=== PATIENT | female | born 1985 | race Caucasian/White ===

== ENCOUNTER 2017-03-09 09:07 | Inpatient (IN) ==
--- NOTE | 2017-03-09 09:21 | Emergency Department Note ---
Disposition Clinical Impression: Cellulitis Qualifiers: Site of cellulitis: neck Qualified Code(s): L03.221 - Cellulitis of neck Disposition: Admitted As Inpatient Condition: Fair Referrals: NONE,PCP [Primary Care Provider] - Forms: ED Satisfaction Letter Time of Disposition: 12:21 Dental HPI - General Chief complaint: ED Dental/Oral Stated complaint: Dental Pain Time Seen by Provider: 03/09/17 09:14 Source: patient Mode of arrival: ambulatory Limitations: no limitations Nursing Notes Reviewed: Yes Vital Signs Reviewed: Yes - History of Present Illness HPI Narrative: 32-year-old female who comes in complaining of swelling to the left side of her face. Patient seen here twice on Wednesday given antibiotics however she has not been able to get the antibiotics due to her situation. She noticed increasing swelling. She is able swallow and handle secretions and speak without difficulty. Pt Subjective Complaint: dental pain Onset (ago): day(s) Duration: constant (5) Pain Severity: moderate Improves with: nothing Worsens with: other (Time) Context: other (History of a filling placed while she was in senior care and her tooth broke around it.) Treatment prior to arrival: none - Related Data Previous Rx's Medication Instructions Recorded Amoxicillin/Clavulanate [Augmentin] 875 mg PO BIDWM #14 tablet 03/06/17 Naproxen [Naprosyn] 500 mg PO BID PRN #20 tablet 03/06/17 Allergies Allergy/AdvReac Type Severity Reaction Status Date / Time No Known Allergies Allergy Verified 03/06/17 11:37 Constitutional: Denies: fever, chills, weakness, weight change Eyes: Denies: eye pain, eye discharge, vision change ENT ED: Reports: dental pain, other (Facial swelling). Denies: ear pain, throat pain, hearing loss, epistaxis, congestion, dysphagia Cardiovascular: Denies: chest pain, palpitations, dyspnea on exertion, edema, syncope Respiratory: Denies: cough, dyspnea, wheezes, hemoptysis, stridor Gastrointestinal: Denies: abdominal pain, nausea, vomiting, diarrhea, constipation, hematemesis, melena, hematochezia Genitourinary: Denies: dysuria, frequency, hematuria, discharge Musculoskeletal: Denies: back pain, neck pain, arthralgia, myalgia Integumentary: Denies: rash, abrasion, lesions Neurological: Denies: headache, weakness, numbness, paresthesias, confusion, abnormal gait, vertigo Psychiatric: Denies: anxiety, depression, suicidal thoughts, homicidal thoughts , auditory hallucinations, visual hallucinations Endocrine: Denies: fatigue Hematological/Lymphatic: Denies: easy bleeding, easy bruising Allergic/Immunologic: Denies: facial swelling, urticaria Past Medical History - Past Medical History Medical history: Reports: no medical history Surgical history: Reports: non-contributory Psychiatric history: Reports: no psych history - Social History Smoking Status: Current every day smoker Smokeless Tobacco Status: No Alcohol use: Reports: none Drug use: Reports: none Physical Exam - General Limitations: no limitations General appearance: alert, in no apparent distress - Head Head exam: atraumatic, normocephalic, normal inspection - Eye Eye exam: Present: normal appearance, PERRL, EOMI - ENT ENT exam: other (Swelling left side of her face no fluctuance. There is some redness going down anterior neck.) - Expanded ENT Exam Teeth exam: Present: other (There is no significant swelling of the soft palate no displacement of the tonsils. No swelling of the tongue or elevation of the tongue.) Throat exam: Absent: R peritonsillar mass, L peritonsillar mass, muffled voice - Neck Neck exam: Present: normal inspection - Chest Chest inspection: Present: normal inspection, symmetric chest wall rise - Respiratory Respiratory exam: Present: normal lung sounds bilaterally - Cardiovascular Cardiovascular exam: Present: regular rate, normal rhythm, normal heart sounds - Abdominal Exam Abdominal exam: Present: soft, Non-Tender. Absent: tenderness, distention, guarding, rebound, rigidity - Extremities Exam Extremities exam: Present: normal inspection, full ROM. Absent: tenderness, pedal edema - Expanded Lower Extremity Exam Neurovascular/Tendon exam: Absent: motor deficit, sensory deficit, tendon deficit Gait: observed and normal - Back Exam Back exam: Present: normal inspection, full ROM. Absent: tenderness - Neurological Exam Neurological exam: Present: alert, oriented X3 - Psychiatric Psychiatric exam: Present: normal affect, normal mood - Skin Skin exam: Present: warm, dry, intact, normal color Course - Reevaluation(s) Reevaluation #1: 32-year-old with the dental etiology swelling of the face who the symptoms got worse with increased swelling. CT scan shows significant cellulitis or an admit for IV antibiotics. Time: 12:37 - Consultations Consultation #1: Discussed with Dr. Thorpe, recommends oral surgery consult for the dental issue but is available if airway issues develop. Time: 12:25 Consultation #2: Discussed with , who recommends IV antibiotic treatment and then when the swelling is down and the patient's discharged for him to be contacted so that he can do the definitive procedure in his office. Time: 12:33 Consultation #3: Discussed with Dr. Lindsey, admit. Time: 12:37 Vital Signs Temperature 98.1 F 03/09/17 09:11 Pulse Rate 84 03/09/17 09:11 Respiratory Rate 20 03/09/17 09:11 Blood Pressure 100/67 03/09/17 09:11 O2 Sat by Pulse Oximetry 99 03/09/17 09:11 Temperature 98.1 F 03/09/17 09:11 Pulse Rate 84 03/09/17 09:11 Respiratory Rate 20 03/09/17 09:11 Blood Pressure 100/67 03/09/17 09:11 O2 Sat by Pulse Oximetry 99 03/09/17 09:11 Oxygen Delivery Oxygen Delivery Room Air Dental/Oral - Lab Data Lab results reviewed: Yes I reviewed the patient's lab results. Result diagrams: 03/09/17 09:58 03/09/17 09:58 Lab Results 03/09/17 03/09/17 03/09/17 Range/Units 09:58 09:58 09:58 WBC 11.7 H (4.3-11.1) K/mcL RBC 4.17 (3.82-4.97) M/mcL Hgb 12.8 (11.5-15.4) g/dL Hct 37.9 (35.3-44.9) % MCV 90.9 (83.0-100.0) fL MCH 30.7 (28.0-33.3) pg MCHC 33.8 (31.6-35.5) g/dL RDW 12.9 (11.5-14.5) % Plt Count 212 (140-400) K/mcL MPV 12.1 (9.4-12.4) fL Immature Gran % 1.1 (0-4) % Seg Neutrophils % 76.4 % Lymphocytes % 13.4 % Monocytes % 6.8 % Eosinophils % 1.7 % Basophils % 0.6 % Neutrophils # 9.0 H (1.6-8.9) K/mcL Lymphocytes # 1.6 (0.6-4.6) K/mcL Monocytes # 0.8 (0.0-1.3) K/mcL Eosinophils # 0.2 (0.0-0.6) K/mcL Basophils # 0.1 (0.0-0.2) K/mcL Sodium 140 (136-145) mEq/L Potassium 3.6 (3.5-4.5) mEq/L Chloride 108 (98-109) mEq/L Carbon Dioxide 21 (19-29) mEq/L BUN 7 (7-20) mg/dL Creatinine 0.70 (0.57-1.11) mg/dL Est GFR ( Amer) > 60 (> 60) Est GFR (Non-Af Amer) > 60 (> 60) BUN/Creatinine Ratio 10 (6-26) Glucose 85 (70-99) mg/dL Calculated Osmolality 287 (280-300) Calcium 8.8 (8.6-10.8) mg/dL Serum , Qual Negative (Negative) - Radiology Data Radiology results reviewed: Yes I reviewed the patient's radiology results. Soft Tissue Neck CT 03/09/17 09:18 IMPRESSION: Left premandibular soft tissue swelling likely related to cellulitis with phlegmon changes without drainable fluid collection or well-formed abscess, likely of dental sources, grossly stable. Extension of inflammatory changes into the left masseter muscle and left platysmas muscle. Cervical lymphadenopathy particularly at the left level IB and IIA, likely reactive. D/ / Logan Santiago MD / Logan Santiago MD Interpreting Provider: Logan Santiago MD
[2017-03-09 10:14] LABS: Basophils # 0.1 K/mcL (0.0-0.2); Basophils % 0.6 %; Eosinophils # 0.2 K/mcL (0.0-0.6); Eosinophils % 1.7 %; Hematocrit 37.9 % (35.3-44.9); Hemoglobin 12.8 g/dL (11.5-15.4); Immature Granulocytes % 1.1 % (0-4); Lymphocytes # 1.6 K/mcL (0.6-4.6); Lymphocytes % 13.4 %; Mean Corpuscular HGB Conc 33.8 g/dL (31.6-35.5); Mean Corpuscular Hemoglobin 30.7 pg (28.0-33.3); Mean Corpuscular Volume 90.9 fL (83.0-100.0); Mean Platelet Volume 12.1 fL (9.4-12.4); Monocytes # 0.8 K/mcL (0.0-1.3); Monocytes % 6.8 %; Platelet Count 212 K/mcL (140-400); Red Blood Count 4.17 M/mcL (3.82-4.97); Red Cell Distribution Width 12.9 % (11.5-14.5); Segmented Neutrophils % 76.4 %
[2017-03-09 10:26] LABS: BUN/Creatinine Ratio 10 (6-26); Blood Urea Nitrogen 7 mg/dL (7-20); Calcium 8.8 mg/dL (8.6-10.8); Carbon Dioxide 21 mEq/L (19-29); Chloride 108 mEq/L (98-109); Glucose 85 mg/dL (70-99); Osmolality,Calculated 287 (280-300); Potassium 3.6 mEq/L (3.5-4.5); Sodium 140 mEq/L (136-145); eGFR For African Americans > 60 (> 60); eGFR For Non-African Americans > 60 (> 60)
[2017-03-09] MEDS ORDERED: Piperacillin/Tazobactam 3.375 GM in D5% in Water (Mini-Bag+) 100 ML IVPB ONE (12:21)
[2017-03-09] MEDS ORDERED: Ibuprofen 600 MG TABLET PO ONE (18:43)
--- NOTE | 2017-03-09 20:04 | Internal Med History&Physical ---
<Zackary Agee - Last Filed: 03/09/17 21:00> Date of Encounter: 03/09/17 Time of Encounter: 20:04 Assessment and Plan (1) Cellulitis Current visit: Yes Status: Acute - As demonstrated on CT in ED today and at previous ED visit wednesday - Cellulitits involving soft tissue without obvious drainable abscess. Involvement of left masseter and platysmus muscle - ENT and dental surgery consulted in ED, recommend IV abx and follow up outpatient for dental surgery - No reported fevers, orbital involvement, airway compromise, cardiac signs or symptoms. Mild WBC elevation at 11.7 - Will continue IV Abx with unasyn 3g q6hr and pain control. Qualifiers: Site of cellulitis: mouth Qualified Code(s): K12.2 - Cellulitis and abscess of mouth (2) DVT prophylaxis Current visit: Yes Status: Acute - heparin 5000 units q12 hr Internal Medicine - H&P: HPI Chief complaint: Tooth pain Admitted From: Emergency Dept Plans for Post Hospital Care: Home History of present illness: Ms. Ron is a 32 year old female who presents to ED with a complaint of left lower tooth pain. She reports that she lost a filling approximately 6-8 months ago around tooth 19. She reports start of swelling last , and pain onset on tuesday 03/06. She presented to the ED twice on wednesday and CT scan showed soft tissue swelling. She was discharged home with augmentin but states she was unable to fill her perscription due to living in a correction house. She states the swelling and pain have gotten worse since then. She denies any symptoms of fevers, CP, trouble breathing, nausea, vomiting, weakness but she does admit to difficulty eating due to pain as well as some chills last wednesday. She has been afebrile since during hospital stay but was noted to be tachycardic in ED wednesday. She has been taking ibuprofen at home with minimal relief. In ED, VS wnl. Labs significant for mild white count at 11.7. Remainder of labs unremarkable. CT head again showed soft tissue swelling without definite abscess. She was started on zosyn. ENT consulted in ED who recommended dental surgery consult. Dental surgery recommended IV ABx and follow up as outpatient for dental procedure. Past Med Surg Social Fam HX - Past Medical History Medical history: no medical history Psychiatric history: no psych history - Past Surgical History Surgical History: non-contributory, - Social History Smoking Status: Current every day smoker Smokeless Tobacco Status: No Alcohol use: none Drug use: none (former heroin use, clean 3 years) Current living situation: Other (correction house) Internal Medicine - H&P: Meds No Known Home Drugs 03/09/17 [History] 3 Allergy/AdvReac Type Severity Reaction Status Date / Time No Known Allergies Allergy Verified 03/06/17 11:37 All Systems PM: A 10-system review of systems was performed and is negative for pertinent findings except as documented above in the HPI. - Constitutional Constitutional: chills, no excessive sweating, no fatigue, no fever(s) - EENT Eyes: no change in vision Ears: ear pain (pressure in left ear secondary to swelling) Nose, mouth and throat: dental pain, facial pain, no odynophagia, no sinus pain , no sore throat, no throat swelling - Cardiovascular Cardiovascular ROS IM: no chest pain, no dyspnea, no dyspnea on exertion, no edema, no palpitations - Respiratory Respiratory: no dyspnea, no dyspnea on exertion - Gastrointestinal Gastrointestinal: no abdominal pain, no nausea, no vomiting - Integumentary Integumentary IM: no rash - Neurological Neurological ROS: no numbness, no tingling - Constitutional Vitals: Temp Pulse Resp BP Pulse Ox 98.0 F 62 20 107/75 100 03/09/17 18:47 03/09/17 18:47 03/09/17 18:47 03/09/17 18:47 03/09/17 19:46 Exam: Gen.: Vitals noted. No acute distress. AAOx3. Well developed, well nourished. HEENT: PERRL, pupils 5mm. oropharynx clear, multiple dental caries bilaterally. No obvious cracked teeth. Peridontal swelling noted on left with significant cheek involvement. No discharge seen. Normocephalic, atraumatic, MMM Neck: Supple. Adenopathy present on left anterior cervical chain. Cardiac: RRR, no murmur, +S1/S2 Pulmonary: CTA bilaterally, no wheezes, rales or rhonchi, equal chest expansion MSK: ROM intact, no joint swelling noted Extremities: no BLE edema, nontender calf, no cyanosis or clubbing Neuro: A&Ox3, moves all extremities, no focal deficits Psych: Appropriate mood and behavior Internal Med - H&P Results - Labs CBC & Chem 7: 03/09/17 09:58 03/09/17 09:58 <Deon Judd H - Last Filed: 03/09/17 21:14> Date of Encounter: 03/09/17 Assessment and Plan (1) Cellulitis Current visit: Yes Status: Acute Left pre-mandibular cellulitis with no abscess Start Unasyn IV Use Toradol and Motrin for pain CT scan showed: Left premandibular soft tissue swelling likely related to cellulitis with phlegmon changes without drainable fluid collection or well-formed abscess, likely of dental sources, grossly stable. Extension of inflammatory changes into the left masseter muscle and left platysmas muscle. Cervical lymphadenopathy particularly at the left level IB and IIA, likely reactive. Early ambulation for DVT prophylaxis. The patient will be admitted as inpatient. Full code. Time spent on these admission 40 minutes.. High risk of complications I examined this patient and my medical decision-making was reviewed with the Resident Physician. I agree with the documented findings, disposition and treatment plan as described except to the extent set forth below. Qualifiers: Site of cellulitis: mouth Qualified Code(s): K12.2 - Cellulitis and abscess of mouth (2) Tobacco abuse Current visit: Yes Status: Acute Use nicotine patch (3) Heroin abuse Current visit: Yes Status: Acute Remote history of heroine abuse up until 3 years ago Internal Medicine - H&P: HPI History of present illness: Ms. Ron is a 32 year old female Past Med Surg Social Fam HX - Past Medical History Medical history: other (Tobacco use and remote history of IV drug abuse) All Systems PM: A 10-system review of systems was performed and is negative for pertinent findings except as documented above in the HPI. - Constitutional Vitals: Temp Pulse Resp BP Pulse Ox 98.0 F 62 20 107/75 100 03/09/17 18:47 03/09/17 18:47 03/09/17 18:47 03/09/17 18:47 03/09/17 19:46 Internal Med - H&P Results - Labs CBC & Chem 7: 03/09/17 09:58 03/09/17 09:58
[2017-03-09] MEDS ORDERED: Naloxone 0.4 MG/ML INJ IVP PRN (20:05)
[2017-03-09] MEDS ORDERED: *HR* Morphine 2 MG/ML SYRINGE IVP PRN (20:05)
[2017-03-09] MEDS ORDERED: Ondansetron 4 MG/2 ML VIAL IVP PRN (20:05)
[2017-03-09] MEDS ORDERED: Ibuprofen 400 MG TABLET PO PRN (20:05)
[2017-03-09] MEDS ORDERED: Acetaminophen 325 MG TABLET PO PRN (21:15)
[2017-03-09] MEDS: Ketorolac 30 MG/ML VIAL IVP PRN (21:44)
[2017-03-09] MEDS: Nicotine 14 MG PATCH.TD24 TD SCH (21:44)
[2017-03-09] MEDS: Ampicillin/Sulbactam 3,000 MG in 0.9 % Sodium Chloride Mini Bag 100 ML IVPB SCH (23:19)
[2017-03-10] MEDS: Ampicillin/Sulbactam 3,000 MG in 0.9 % Sodium Chloride Mini Bag 100 ML IVPB SCH ×3 (05:24→18:03)
[2017-03-10] MEDS: *HR* Heparin 5,000 UNIT/ML VIAL SQ SCH ×2 (05:26→18:04)
[2017-03-10 07:31] LABS: Basophils # 0.1 K/mcL (0.0-0.2); Basophils % 0.8 %; Eosinophils # 0.4 K/mcL (0.0-0.6); Eosinophils % 3.7 %; Hematocrit 40.2 % (35.3-44.9); Hemoglobin 13.6 g/dL (11.5-15.4); Immature Granulocytes % 1.8 % (0-4); Lymphocytes # 2.2 K/mcL (0.6-4.6); Lymphocytes % 20.5 %; Mean Corpuscular HGB Conc 33.8 g/dL (31.6-35.5); Mean Corpuscular Hemoglobin 30.6 pg (28.0-33.3); Mean Corpuscular Volume 90.5 fL (83.0-100.0); Mean Platelet Volume 12.5 fL (9.4-12.4); Monocytes # 0.8 K/mcL (0.0-1.3); Monocytes % 7.7 %; Platelet Count 231 K/mcL (140-400); Red Blood Count 4.44 M/mcL (3.82-4.97); Segmented Neutrophils % 65.5 %
[2017-03-10 07:38] LABS: Blood Urea Nitrogen 9 mg/dL (7-20); Calcium 8.9 mg/dL (8.6-10.8); Carbon Dioxide 21 mEq/L (19-29); Chloride 112 mEq/L (98-109); Glucose 87 mg/dL (70-99); Osmolality,Calculated 294 (280-300); Potassium 4.6 mEq/L (3.5-4.5); Sodium 143 mEq/L (136-145)
[2017-03-10 07:48] LABS: BUN/Creatinine Ratio 12 (6-26); eGFR For African Americans > 60 (> 60); eGFR For Non-African Americans > 60 (> 60)
[2017-03-10] MEDS: Ketorolac 30 MG/ML VIAL IVP PRN ×2 (11:28→22:18)
[2017-03-10] MEDS: Nicotine 14 MG PATCH.TD24 TD SCH (11:40)
--- NOTE | 2017-03-10 12:43 | Internal Med Progress Note ---
Date of Encounter: 03/10/17 Time of Encounter: 12:00 - Assessment and plan (1) Cellulitis Current Visit: Yes Status: Acute Assessment and plan: Continue current antibiotic awaiting final blood culture. Discuss with staff will need to schedule an appointment with dentist as soon as possible. Possible discharge in next 24 hour once we have appointment with dentist. Qualifiers: Site of cellulitis: mouth Qualified Code(s): K12.2 - Cellulitis and abscess of mouth (2) Tobacco abuse Current Visit: Yes Status: Acute Assessment and plan: Nicotine patch - Time Spent With Patient Continue current antibiotic, encouraged oral fluid, discussed with staff about social situation and need for oral antibiotic arrangement on discharge as well as appointment with dentist or oral surgery 25 - 35 minutes - Subjective Interval history: left side face pain radiating into her ear , patient denies any fever or chills. Patient denies any nausea vomiting. Patient denies any headache. - Constitutional Vitals: Temp Pulse Resp BP Pulse Ox 98.0 F 56 14 101/67 97 03/10/17 11:46 03/10/17 11:46 03/10/17 11:46 03/10/17 11:46 03/10/17 11:46 General appearance: Present: A&O X 3 - Head Head exam: Present: atraumatic, normocephalic - Expanded ENT Exam Teeth exam: Present: dental caries (Second and third left lower molar and third left upper molar), gingival enlargement - Neck Neck exam general surgery: Present: supple, trachea midline - Respiratory Respiratory exam: Present: CTAB. Absent: accessory muscle use, rales, rhonchi, wheezes - Cardiovascular Cardiovascular exam: Present: RRR, +S1, +S2. Absent: diastolic murmur, gallop, rubs, systolic murmur - GI/Abdominal GI/Abdominal exam: Present: normal bowel sounds, soft, no peritoneal signs. Absent: distended, tenderness Internal Medicine: Result - Labs CBC & Chem 7: 03/10/17 06:26 03/10/17 06:26 Labs: Short CBC 03/10/17 Range/Units 06:26 WBC 10.7 (4.3-11.1) K/mcL Hgb 13.6 (11.5-15.4) g/dL Hct 40.2 (35.3-44.9) % Plt Count 231 (140-400) K/mcL Neutrophils # 7.0 (1.6-8.9) K/mcL [facility] 03/10/17 06:26 Sodium 143 Potassium 4.6 H D Chloride 112 H Carbon Dioxide 21 BUN 9 Creatinine 0.77 Glucose 87 Calcium 8.9 Consult Discharge Plan - Plan Referrals: NONE,PCP [Primary Care Provider] -
[2017-03-11] MEDS: Ampicillin/Sulbactam 3,000 MG in 0.9 % Sodium Chloride Mini Bag 100 ML IVPB SCH ×3 (00:08→11:48)
[2017-03-11] MEDS: *HR* Heparin 5,000 UNIT/ML VIAL SQ SCH (07:04)
[2017-03-11] MEDS: Nicotine 14 MG PATCH.TD24 TD SCH (07:59)
[2017-03-11 10:39] VITALS: BP 95/59
--- NOTE | 2017-03-11 13:09 | Discharge Summary ---
Date of Encounter: 03/11/17 Time of Encounter: 16:30 - Discharge Diagnosis (1) Cellulitis Priority: Primary Status: Acute Qualifiers: Site of cellulitis: mouth Qualified Code(s): K12.2 - Cellulitis and abscess of mouth (2) Tobacco abuse Priority: Secondary Status: Acute - Discharge Medications Prescriptions: Amoxicillin/Clavulanate [Augmentin] 875 mg PO BIDWM #20 tablet Home Medications: Acetaminophen [Tylenol] 650 mg PO Q6HR PRN tablet 03/11/17 [Rx] Amoxicillin/Clavulanate [Augmentin] 875 mg PO BIDWM #20 tablet 03/11/17 [Rx] Nicotine Patch [Nicoderm] 14 mg TD DAILY patch.[id number] 03/11/17 [Rx] Allergies/Adverse Reactions: 3 Allergy/AdvReac Type Severity Reaction Status Date / Time No Known Allergies Allergy Verified 03/06/17 11:37 Date of admission: 03/09/17 21:16 Primary care physician: PCP NONE Discharging clinician: Vishnu Lindsey Anticipated date of discharge: 03/11/17 - Patient Status Disposition: Home, Self-Care Condition: Fair Functional capacity at discharge: independent ambulation Overall status at discharge: patient is progressing back to baseline - Discharge Instructions Instructions: Amoxicillin/Clavulanate Potassium (By mouth), Dental Abscess (GEN ), Cellulitis (DC) Follow Up With: Bonilla Martinez DDS [Non-Partnered Physician] - 03/16/17 2:30 pm (Please call office Wednesday to make financial arrangements and verify appointment.) NONE,PCP [Primary Care Provider] - - Diet and Activity Activity: increase activity as tolerated Diet: regular diet Hospital course: Ms. Ron is a 32 year old female presents to ED with a complaint of left lower tooth pain. She reports that she lost filling approximately 6-8 months ago around tooth 19. She reports start of swelling 5 days, and pain started 3 days ago. She presented to the ED twice on wednesday and CT scan showed soft tissue swelling. She was discharged home with augmentin but states she was unable to fill her perscription due to living in a [facility]. She states the swelling and pain have gotten worse since then. She denies any symptoms of fevers, CP, trouble breathing, nausea, vomiting, weakness but she does admit to difficulty eating due to pain as well as some chills last wednesday. She has been afebrile since during hospital stay but was noted to be tachycardic in She has been taking ibuprofen at home with minimal relief. Labs significant for mild white count at 11.7. Remainder of labs unremarkable. CT head again showed soft tissue swelling without definite abscess. She was started on zosyn. ENT consulted in ED who recommended dental surgery consult. Dental surgery recommended IV ABx and follow up as outpatient for dental procedure. Patient was admitted to the hospital, patient was started on Unasyn and continue to monitor patient condition. She had marked improvement of her swelling and cellulitis of her face. Patient was able to eat. She was febrile. Appointment with oral surgeon scheduled. Patient was discharged home in stable condition. - Time Spent with Patient Total time spent providing and/or coordinating discharge services: Greater than 30 minutes - Constitutional Vitals: Temp Pulse Resp BP Pulse Ox 98.2 F 59 16 95/59 96 03/11/17 10:37 03/11/17 10:37 03/11/17 10:37 03/11/17 10:37 03/11/17 10:37 General appearance: Present: A&O X 3 - Head Head exam: Present: atraumatic, normocephalic - Neck Neck exam general surgery: Present: supple, trachea midline. Absent: lymphadenopathy - Respiratory Respiratory exam: Present: CTAB. Absent: accessory muscle use, rales, rhonchi, wheezes - Cardiovascular Cardiovascular exam: Present: RRR, +S1, +S2. Absent: diastolic murmur, gallop, rubs, systolic murmur - GI/Abdominal GI/Abdominal exam: Present: normal bowel sounds, soft, no peritoneal signs. Absent: distended, tenderness - Extremities Exam Extremities exam: Present: warm, radial pulses palpable and symmetrical. Absent : calf tenderness, cyanotic, pedal edema - Neurological Exam Neurological exam: Present: CN II-XII intact, oriented X3, no focal deficits. Absent: pronater drift, facial droop, speech deficit - Skin Skin exam: Present: dry, intact
== END 2017-03-11 15:09 | disposition home or self-care (01) | DRG 159 ==
LOC: 3BNU 09:07 → EMEROO 09:07 → 3BNU 17:01
PROVIDERS: ADMIT Internal Medicine; ATTEND Registered Nurse